=== PATIENT | male | born 1950 | race Caucasian/White ===

== ENCOUNTER 2024-03-16 11:32 | Observation (INO) | payer OTHER, SELFPAY ==
[2024-03-16] VITALS (44 sets, daily range): BP systolic 110–184; BP diastolic 68–110; PULSE 73–136; TEMP 36.8–37.3; O2SAT 84–100; BMI 28.5; BMI 21.3
--- NOTE | 2024-03-16 11:34 | XR_ITS ---
[address] [address] Patient Name: VÍCTOR TEMPLE MRN: [id number] date: 1950 Sex: M Assigned Patient Location: ER Current Patient Location: ED.MAIN Accession/Order Number: [id number] Exam Date: 03/16/2024 11:43 Report Date: 03/16/2024 12:58 At the request of: LEX FALLON Procedure: XR chest 1V EXAM: XR chest 1V HISTORY: shortness of breath COMPARISON: 04/18/2016 TECHNIQUE: AP upright chest x-ray FINDINGS: Lungs appear stable with a few minor scars, no consolidation or edema or new lung lesion. Normal heart size and mediastinal contour for technique. No pleural effusion or pneumothorax. XR/XR chest 1V IMPRESSION: Stable chest x-ray, no acute findings. Electronically authenticated by: THERESE MORALES Date: 03/16/2024 12:58
--- NOTE | 2024-03-16 11:34 | ECG_ITS ---
[facility] Test Date: 2024-03-16 Pat Name: PEDRO TEMPLE Department: Room: - Gender: Male Imposer: : 1950 Requested By: [id number] Order Number: [id number] Reading MD: BELGICA VALDES Measurements Intervals [place] Rate: 102 P: 49 WI: 170 QRS: 55 QRSD: 90 T: 68 QT: 374 QTc: 432 Interpretive Statements 1120 Sinus tachycardia 1470 with occasional supraventricular premature complexes [address] depression [address] & Twave abnormality, can't exclude inferolateral ischemia 9150 abnormal ECG No previous ECG available for comparison Electronically Signed On 03-17-2024 7:17:21 EDT by BELGICA VALDES
[2024-03-16] MEDS: 0.9 % SODIUM CHLORIDE 1,000 ML 1000 ML IV (11:50)
[2024-03-16 11:56] LABS: Hematocrit 46.2 % (42.0-54.0); Hemoglobin 16.5 g/dL (14.0-18.0); Mean Corpuscular HGB Conc 35.7 g/dL (29.9-35.2); Mean Corpuscular Hemoglobin 32.5 pg (25.9-34.0); Mean Corpuscular Volume 90.9 fL (80.0-94.0); Mean Platelet Volume 10.5 fL (9.5-13.5); Platelet Count 434 10^3/uL (150-450); Red Blood Count 5.08 10^6/uL (4.70-6.10); Red Cell Distribution Width 12.9 % (11.0-15.0); White Blood Count 25.5 10^3/uL (4.0-11.0)
[2024-03-16 12:14] LABS: INR 1.01; Prothrombin Time 10.7 sec (9.0-11.6)
[2024-03-16 12:16] LABS: Band Neutrophils Absolute 0.5 10^3/uL (0.0-0.3); Lymphocytes Absolute Manual 0.51 10^3/uL (1.20-3.80); Monocytes Absolute Manual 0.51 10^3/uL (0.30-0.80); Segmented Neut Absolute Manual 23.97 10^3/uL (1.4-6.5)
--- NOTE | 2024-03-16 12:25 | CT_ITS ---
[address] [address] Patient Name: VÍCTOR TEMPLE MRN: [id number] date: 1950 Sex: M Assigned Patient Location: ER Current Patient Location: ER Accession/Order Number: [id number] Exam Date: 03/16/2024 13:47 Report Date: 03/16/2024 14:51 At the request of: LEX FALLON Procedure: CT abdomen pelvis wo con EXAM: CT abdomen pelvis wo con INDICATION: LLQ pain. COMPARISON: CT abdomen pelvis 06/28/2018. TECHNIQUE: Multiple contiguous axial CT images of the abdomen and pelvis were obtained without the use of intravenous contrast. Sagittal and coronal reconstructions were performed. Dose reduction techniques were achieved by using: automated exposure control and/or adjustment of mA and /or kV according to patient size and/or use of iterative reconstruction technique. FINDINGS: Evaluation of visceral organs limited by noncontrast technique. LOWER CHEST: No significant abnormality. ABDOMEN AND PELVIS: LIVER: Unremarkable. BILIARY SYSTEM: Cholecystectomy. Stable mild dilation of the common bile duct, likely sequelae of chronic outlet obstruction. PANCREAS: Unremarkable. SPLEEN: Unremarkable. ADRENAL GLANDS: Normal. URINARY SYSTEM: Similar size of 1.3 cm hyperdense cyst in the left kidney. Simple 2.1 cm cyst in the upper pole the left kidney. Unremarkable right kidney. No hydronephrosis or urolithiasis. Normal bladder. REPRODUCTIVE: Unremarkable. GASTROINTESTINAL TRACT: Normal caliber bowel. No bowel wall thickening or inflammation. Appendectomy. VESSELS: Nonaneurysmal abdominal aorta with mild atherosclerotic calcifications. LYMPH NODES: No adenopathy. PERITONEUM: No ascites or pneumoperitoneum. MUSCULOSKELETAL: SOFT TISSUES: Unremarkable soft tissues. BONES: No acute osseous abnormality or suspicious osseous lesion. MARTE: (series:image) CT/CT abdomen pelvis wo con IMPRESSION: No acute abdominal or pelvic abnormality. Electronically authenticated by: BLANCA SEN Date: 03/16/2024 14:51
[2024-03-16 12:28] LABS: Alanine Aminotransferase 41 U/L (16-63); Albumin Globulin Ratio 0.9; Albumin Level 4.3 g/dL (3.4-5.0); Alkaline Phosphatase 158 U/L (46-116); Anion Gap 19.9; Aspartate Amino Transferase 69 U/L (15-37); BUN Creatinine Ratio 14.9; Bilirubin Total 1.8 mg/dL (0.2-1.0); Calcium 10.1 mg/dL (8.5-10.1); Carbon Dioxide 24.4 mmol/L (21.0-32.0); Chloride 91 mmol/L (98-107); Estimated GFR (African America 27 (>=60); Estimated GFR (Non-African Ame 22 (>=60); Globulin 4.7 g/dL; Glucose 169 mg/dL (74-106); Magnesium 2.2 mg/dL (1.8-2.4); Sodium 133 mmol/L (136-145); Troponin I High Sensitivity 52.6 pg/mL (4.0-76.1)
[2024-03-16 12:34] LABS: Ethanol <3 mg/dL
[2024-03-16 12:36] LABS: Lactate/Lactic Acid 4.6 mmol/L (0.4-2.0); Potassium 2.3 mmol/L (3.5-5.1)
[2024-03-16] MEDS: PIPERACILLIN SODIUM/TAZOBACTAM 3.375 GM in 0.9 % SODIUM CHLORIDE 50 ML IV (13:23)
[2024-03-16] MEDS: SODIUM CHLORIDE 638 ML IV (13:36)
[2024-03-16] MEDS: POTASSIUM CHLORIDE IN WATER 10 MEQ/100 ML PIGGYBACK 100 MEQ IV (13:58)
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
[2024-03-16] MEDS: ONDANSETRON PF 4 MG/2 ML VIAL IV ×2 (14:08→19:59)
[2024-03-16] MEDS: MORPHINE SULFATE 2 MG/ML SYRINGE IV (14:08)
[2024-03-16] MEDS: PROCHLORPERAZINE 10 MG/2 ML VIAL 5 MG IV (15:11)
[2024-03-16 15:35] LABS: Bilirubin Urine MODERATE (NEGATIVE); Blood Urine LARGE (NEGATIVE); Clarity Urine CLEAR (CLEAR); Color Urine YELLOW (YELLOW); Glucose Urine UA NEGATIVE (NEGATIVE); Ketones Urine 15 mg/dL (NEGATIVE); Leukocyte Esterase Urine NEGATIVE (NEGATIVE); Nitrite Urine NEGATIVE (NEGATIVE); Protein Urine 100 mg/dL (NEG/TRACE); Specific Gravity Urine >=1.030 (1.005-1.025); Urobilinogen Urine 0.2 EU/dL (0.2-1.0); pH Urine 5.5 (5.0-9.0)
[2024-03-16 15:38] LABS: Urine Microscopic Indicated YES
[2024-03-16 15:40] LABS: Amphetamine Screen Urine POSITIVE (NEGATIVE); Barbiturates Screen Urine NEGATIVE (NEGATIVE); Benzodiazepines Screen Urine NEGATIVE (NEGATIVE); Buprenorphine Screen Urine NEGATIVE (NEGATIVE); Cannabinoid Screen Urine POSITIVE (NEGATIVE); Cocaine Screen Urine POSITIVE (NEGATIVE); Methadone Screen Urine NEGATIVE (NEGATIVE); Methamphetamines Screen Urine POSITIVE (NEGATIVE); Opiate Screen Urine POSITIVE (NEGATIVE); Oxycodone Screen Urine NEGATIVE (NEGATIVE); Phencyclidine Screen Urine NEGATIVE (NEGATIVE); Tricyclic Antidepressant Urine NEGATIVE (NEGATIVE)
[2024-03-16 15:46] LABS: Bacteria Urine TRACE #/HPF (NONE SEEN); Cast Seen? SEEN #/LPF (NONE SEEN); Crystals Seen? None Seen #/HPF (None Seen); Mucus Urine TRACE (NONE SEEN); Squamous Epithelial Cell Urine FEW #/LPF (NONE/RARE); WBC Urine NONE SEEN #/HPF (NONE SEEN)
[2024-03-16 15:47] LABS: Hyaline Casts Urine RARE; Urine Culture Indicated NO
[2024-03-16] MEDS: POTASSIUM CHLORIDE IN 0.9%NACL 1,000 ML 80 MEQ IV (17:08)
--- NOTE | 2024-03-16 17:34 | PC.NURSE ---
called [facility] and spoke with yeoy woodward ut pharmacist and received verbal med list. pattern chart writer requested a med list to be faxed to [facility] med surg. pharmacist notified pattern chart writer that requests for med list to be faxed had to be during office hours and could take up to three days to be approved, that she could only give a verbal med list.
[2024-03-16] MEDS: CLORDIAZEPOXIDE HCl 25 MG CAPSULE PO (19:59)
[2024-03-16] MEDS: METOPROLOL TARTRATE 50 MG TABLET PO (21:40)
[2024-03-16] MEDS: LORAZEPAM 2 MG/ML VIAL 1 MG IV (21:40)
[2024-03-16] MEDS: MIRTAZAPINE 15 MG TABLET PO (21:40)
[2024-03-16] MEDS: ATORVASTATIN CALCIUM 10 MG TABLET PO (21:40)
[2024-03-16] MEDS: TAMSULOSIN HCL 0.4 MG CAPSULE PO (21:40)
[2024-03-17] VITALS (18 sets, daily range): BP systolic 95–182; BP diastolic 58–86; PULSE 55–102; TEMP 36.6–36.9; O2SAT 94–96
[2024-03-17 05:08] LABS: Basophils Absolute Auto 0.1 10^3/uL (0.0-0.1); Basophils Percent Auto 0.3 % (0.2-2.0); Eosinophils Percent Auto 0.1 % (0.9-7.0); Hematocrit 36.7 % (42.0-54.0); Hemoglobin 12.7 g/dL (14.0-18.0); Immature Granulocytes Pct Auto 0.6 % (0.0-0.5); Lymphocytes Absolute Auto 1.8 10^3/uL (1.2-3.8); Lymphocytes Percent Auto 11.6 % (20.5-60.0); Mean Corpuscular HGB Conc 34.6 g/dL (29.9-35.2); Mean Corpuscular Volume 95.3 fL (80.0-94.0); Mean Platelet Volume 10.3 fL (9.5-13.5); Monocytes Absolute Auto 1.4 10^3/uL (0.3-0.8); Monocytes Percent Auto 8.9 % (1.7-12.0); Neutrophils Absolute Auto 12.5 10^3/uL (1.4-6.5); Neutrophils Percent Auto 78.5 % (43.0-75.0); Platelet Count 254 10^3/uL (150-450); Red Blood Count 3.85 10^6/uL (4.70-6.10); Red Cell Distribution Width 13.3 % (11.0-15.0); White Blood Count 15.9 10^3/uL (4.0-11.0)
[2024-03-17 05:40] LABS: Alanine Aminotransferase 37 U/L (16-63); Albumin Globulin Ratio 0.9; Alkaline Phosphatase 104 U/L (46-116); Aspartate Amino Transferase 55 U/L (15-37); Calcium 8.3 mg/dL (8.5-10.1); Carbon Dioxide 27.8 mmol/L (21.0-32.0); Chloride 103 mmol/L (98-107); Estimated GFR (African America 39 (>=60); Estimated GFR (Non-African Ame 32 (>=60); Globulin 3.5 g/dL; Glucose 90 mg/dL (74-106); Sodium 138 mmol/L (136-145); Total Protein 6.5 g/dL (6.4-8.2)
[2024-03-17] MEDS: POTASSIUM CHLORIDE IN 0.9%NACL 1,000 ML 80 MEQ IV ×2 (05:43→18:31)
[2024-03-17] MEDS: ONDANSETRON PF 4 MG/2 ML VIAL IV ×2 (05:46→09:53)
[2024-03-17] MEDS: LORAZEPAM 2 MG/ML VIAL 1 MG IV ×2 (05:47→09:53)
[2024-03-17 05:50] LABS: Potassium 2.8 mmol/L (3.5-5.1)
[2024-03-17] MEDS: HYOSCYAMINE SULFATE 0.125 MG TAB.SUBL SL ×2 (09:29→20:16)
[2024-03-17] MEDS: PANTOPRAZOLE SODIUM 40 MG VIAL IV ×2 (11:37→22:06)
--- NOTE | 2024-03-17 14:02 | P.HP_ITS ---
HPI H&P: HPI History of Present Illness Chief complaint: INTRACTABLE VOMITING/HYPOKALEMIA Narrative: 74 y/o male to ER with nausea, vomiting, and abdominal pain for several days. Diffuse pain across abdomen. Severe nausea and emesis. Not able to keep down food or drink and to ER. Afebrile. WBC elevated at 25.5. Potassium low and lactate elevated. CT abdomen negative and UA normal. Urine drug screen positive for opiates, amphetamines, cocaine, and THC. Admitted for treatment. Started IV fluids. Feels better overnight and nausea improved. Feels hungry but once attempted to eat developed nausea and emesis. Opioid HPI Opioid Management Most Recent Pain and Opioid Data: Last Pain Scale 0 03/17/24 13:57 Last Pain Assessment 03/17/24 13:57 Last ED Pain Assessment 03/16/24 13:43 Last ORT Total Score 10 03/16/24 16:57 Last ORT Risk Category High Risk 03/16/24 16:57 Last COWS Score 14 03/17/24 13:56 Last COWS Severity Moderate 03/17/24 13:56 Ur Phencyclidine Scrn Negative (NEGATIVE) 03/16/24 14:55 Review of Systems ROS Constitutional Denies: fever, chills or fatigue Cardiovascular Denies: chest pain, palpitations or edema Respiratory Denies: shortness of breath, cough or wheezing Gastrointestinal Reports: abdominal pain, nausea and vomiting; Denies: diarrhea Genitourinary Denies: painful urination [facility] Medical History (Updated 03/17/24 @ 10:13 by Bry Burnette MD) Leukocytosis ?D72.829 - Elevated white blood cell count, unspecified (ICD-10) Surgical History (Updated 03/16/24 @ 16:50 by Amelie Barron LPN) H/O exploratory laparotomy ?Z98.890 - Other specified postprocedural states (ICD-10) History of cholecystectomy ?Z90.49 - Acquired absence of other specified parts of digestive tract (ICD- 10) History of appendectomy ?Z90.49 - Acquired absence of other specified parts of digestive tract (ICD- 10) Social History (Updated 03/16/24 @ 16:52 by Amelie Barron LPN) Within the past year, how often did you have a drink containing alcohol: never Within the past year, how many standard drinks containing alcohol did you have on a typical day: 1 or 2 Within the past year, how often did you have six or more drinks on one occasion: never Total score: 0 Score interpretation: A score less than 4 is consistent with normal alcohol consumption. Smoking status: Former smoker Second hand tobacco smoke exposure: No Non-prescribed substance use: cannabis (any form) Known occupational exposures/hazards: No Highest level of school completed/degree received: high school graduate Are you now , , , , never or living with a partner: In a typical week, how many times do you talk on the telephone with family, friends, or neighbors: never How often do you get together with friends or relatives: never How often do you attend congregational or faith services: never Do you belong to any clubs or organizations such as congregational groups unions, [employer] or athletic groups, or school groups: no Total score: 0 Score interpretation: A score of less than or equal to 1 indicates the most socially isolated. Little interest or pleasure in doing things: not at all Feeling down, depressed, or hopeless: not at all Feel stressed/tense/nervous/anxious/difficulty sleeping: not at all Due to disability, difficulty making decisions: No Do you think of yourself as: straight/heterosexual Gender Identity: male Meds Home Medications and Allergies Home Medications ?Medication ?Instructions ?Recorded ?Confirmed ?Type aspirin 81 mg tablet,delayed 81 mg PO DAILY 03/16/24 03/16/24 History release (Adult Aspirin Regimen) hydrochlorothiazide 25 mg tablet 25 mg PO DAILY 03/16/24 03/16/24 History metoprolol tartrate 50 mg tablet 50 mg PO BID 03/16/24 03/16/24 History (Lopressor) mirtazapine 15 mg tablet 15 mg PO BEDTIME 03/16/24 03/16/24 History omeprazole 20 mg capsule,delayed 20 mg PO DAILY 03/16/24 03/16/24 History release potassium chloride 20 mEq 20 meq PO DAILY 03/16/24 03/16/24 History tablet,extended release (K-Tab) prazosin 1 mg capsule 1 mg PO BEDTIME 03/16/24 03/16/24 History rivaroxaban 15 mg tablet (Xarelto) 15 mg PO DAILY 03/16/24 03/16/24 History sertraline 100 mg tablet 100 mg PO DAILY 03/16/24 03/16/24 History simvastatin 10 mg tablet 10 mg PO QPM 03/16/24 03/16/24 History tamsulosin 0.4 mg capsule 0.4 mg PO BEDTIME 03/16/24 03/16/24 History Allergies Allergy/AdvReac Type Severity Reaction Status Date / Time No Known Drug Allergies Allergy Verified 03/16/24 11:37 Exam Constitutional Vital Signs, click to edit/add: Last Vital Signs Temp 98.2 F 03/17/24 12:31 Pulse 68 03/17/24 13:51 Resp 16 03/17/24 12:31 BP 120/64 03/17/24 12:31 Pulse Ox 96 03/17/24 12:31 O2 Del Method Room Air 03/17/24 12:31 Documenting provider has reviewed patient's vital signs: yes Common normals: no apparent distress, oriented x3 and alert HENMT Common normals: normocephalic Eye Common normals: PERRL and EOMs intact bilaterally Respiratory Common normals: normal respiratory effort and clear to auscultation bilaterally Cardio Common normals: regular rate, regular rhythm, no gallops, no murmurs and no rub GI Common normals: Normal to inspection, nondistended, normoactive bowel sounds present and non-tender Extremity Common normals: normal to inspection Results Labs Labs: Short CBC 03/17/24 Range/Units 04:56 WBC 15.9 H (4.0-11.0) 10^3/uL Hgb 12.7 L (14.0-18.0) g/dL Hct 36.7 L (42.0-54.0) % Plt Count 254 (150-450) 10^3/uL BMP 03/17/24 04:56 Sodium 138 Potassium 2.8 L* Chloride 103 Carbon Dioxide 27.8 BUN 41.0 H Creatinine 2.05 H Glucose 90 Calcium 8.3 L Liver Function 03/17/24 Range/Units 04:56 Total Bilirubin 1.0 (0.2-1.0) mg/dL AST 55 H (15-37) U/L ALT 37 (16-63) U/L Alkaline Phosphatase 104 (46-116) U/L Albumin 3.0 L (3.4-5.0) g/dL Urine 07/06/24 Range/Units 14:55 Urine Color Yellow (YELLOW) Urine Clarity Clear (CLEAR) Urine pH 5.5 (5.0-9.0) Ur Specific [place] >=1.030 A (1.005-1.025) Urine Protein 100 A (NEG/TRACE) mg/dL Urine Glucose (UA) Negative (NEGATIVE) mg/dL Assessment and Plan Assessment and Plan (1) Intractable nausea and vomiting: (2) Abdominal pain: (3) Acute hypokalemia: (4) Lactic acidosis: (5) EMILIE (acute kidney injury): (6) Polysubstance abuse: Plan Presented with nausea and emesis but no sign of infection. WBC and lactate elevated due to emesis and sepsis ruled out. Symptoms likely related to polysubstance abuse. Continue IV fluids and advance diet as tolerated. Replace electrolytes. Start PT. Will reasess in am.
--- NOTE | 2024-03-17 14:14 | PC.NURSE ---
pt given scrambled eggs and toast and thin liquids. patient states discomfort with swallowing. patient coughed ater eggs and spit up the eggs. patient stated he couldnt keep the eggs down.
[2024-03-17] MEDS: POTASSIUM CHLORIDE 40 MEQ in 0.9 % SODIUM CHLORIDE 250 ML 67.5 MEQ IV (14:27)
[2024-03-17] MEDS: RIVAROXABAN 10 MG TABLET 15 MG PO (16:35)
--- NOTE | 2024-03-17 16:56 | PC.NURSE ---
RN and [employer] at patient bedside. RN crushed pill and put it in some applesauce. Patient asked if he could take a sip of water first. Patient took a sip of water and immediately began to cough and choke. RN gave him the crushed pill in small bites of applesauce. Instructed him to tuck his chin when he swallowed. Patient was able to do so without any coughing or choking.
[2024-03-17] MEDS: METOPROLOL TARTRATE 50 MG TABLET PO (21:28)
[2024-03-17] MEDS: MIRTAZAPINE 15 MG TABLET PO (21:28)
[2024-03-17] MEDS: TAMSULOSIN HCL 0.4 MG CAPSULE PO (21:28)
[2024-03-17] MEDS: ATORVASTATIN CALCIUM 10 MG TABLET PO (21:28)
[2024-03-18] VITALS (9 sets, daily range): BP systolic 127–168; BP diastolic 74–78; PULSE 48–75; TEMP 36.4–36.7; O2SAT 91–97
[2024-03-18 05:01] LABS: Basophils Percent Auto 0.5 % (0.2-2.0); Eosinophils Percent Auto 0.4 % (0.9-7.0); Hematocrit 33.1 % (42.0-54.0); Hemoglobin 11.1 g/dL (14.0-18.0); Immature Granulocytes Abs Auto 0.07 10^3/uL (0.00-0.03); Immature Granulocytes Pct Auto 0.8 % (0.0-0.5); Lymphocytes Percent Auto 11.5 % (20.5-60.0); Mean Corpuscular HGB Conc 33.5 g/dL (29.9-35.2); Mean Corpuscular Hemoglobin 32.6 pg (25.9-34.0); Mean Corpuscular Volume 97.4 fL (80.0-94.0); Mean Platelet Volume 10.7 fL (9.5-13.5); Monocytes Absolute Auto 0.6 10^3/uL (0.3-0.8); Monocytes Percent Auto 7.5 % (1.7-12.0); Neutrophils Absolute Auto 6.7 10^3/uL (1.4-6.5); Neutrophils Percent Auto 79.3 % (43.0-75.0); Platelet Count 198 10^3/uL (150-450); Red Cell Distribution Width 13.5 % (11.0-15.0); White Blood Count 8.5 10^3/uL (4.0-11.0)
[2024-03-18 05:14] LABS: Magnesium 2.1 mg/dL (1.8-2.4)
[2024-03-18 05:17] LABS: Alanine Aminotransferase 38 U/L (16-63); Albumin Globulin Ratio 0.9; Albumin Level 2.8 g/dL (3.4-5.0); Alkaline Phosphatase 93 U/L (46-116); Anion Gap 13.3; Aspartate Amino Transferase 39 U/L (15-37); BUN Creatinine Ratio 19.2; Bilirubin Total 0.6 mg/dL (0.2-1.0); Calcium 8.1 mg/dL (8.5-10.1); Carbon Dioxide 25.3 mmol/L (21.0-32.0); Chloride 110 mmol/L (98-107); Estimated GFR (African America 49 (>=60); Estimated GFR (Non-African Ame 40 (>=60); Globulin 3.1 g/dL; Glucose 95 mg/dL (74-106); Potassium 3.6 mmol/L (3.5-5.1); Sodium 145 mmol/L (136-145); Total Protein 5.9 g/dL (6.4-8.2)
[2024-03-18] MEDS: LORAZEPAM 2 MG/ML VIAL 1 MG IV (05:17)
[2024-03-18] MEDS: POTASSIUM CHLORIDE IN 0.9%NACL 1,000 ML 80 MEQ IV (06:24)
[2024-03-18] MEDS: FOLIC ACID 1 MG TABLET PO (08:31)
[2024-03-18] MEDS: CLORDIAZEPOXIDE HCl 25 MG CAPSULE PO (08:31)
[2024-03-18] MEDS: ASPIRIN 81 MG TABLET.DR PO (08:31)
[2024-03-18] MEDS: HYDROCHLOROTHIAZIDE 25 MG TABLET PO (08:31)
[2024-03-18] MEDS: THIAMINE MONONITRATE (VIT B1) 100 MG TABLET PO (08:31)
[2024-03-18] MEDS: SERTRALINE HCL 100 MG TABLET PO (08:34)
[2024-03-18] MEDS: ONDANSETRON PF 4 MG/2 ML VIAL IV (08:35)
[2024-03-18] MEDS: POTASSIUM CHLORIDE 10 MEQ ER TABLET 20 MEQ PO (08:35)
[2024-03-18] MEDS: METOPROLOL TARTRATE 50 MG TABLET PO (08:40)
[2024-03-18] MEDS: KETOROLAC TROMETHAMINE 30 MG/ML VIAL IVP (11:21)
[2024-03-18] MEDS: PANTOPRAZOLE SODIUM 40 MG VIAL IV (11:23)
--- NOTE | 2024-03-18 12:27 | CM.NOTE ---
Rounds made with Dr. Burnette. Discussed labs & plan of care & to get beside swallow eval with Jose. Jose verbalized understanding. Dr. Burnette discussed living situation and having some water in home. Jose said he is interested in assisted living at the [facility]. Social Service were consulted to discussed living situation. Plan is for possible discharge later today.
[2024-03-18] MEDS: ACETAMINOPHEN 500 MG TABLET 1000 MG PO (12:41)
--- NOTE | 2024-03-18 12:58 | SWNOTE1 ---
HANNAH met with pt to discuss dc needs. Pt lives in an apartment and has for about 8 years. He spoke about water issues, but did not go in to great detail. SW asked if he spoke to his landlord about it? He said he is just trying to move out of there. He has a dog at home. SW brought in the number for the AL home in [facility]. HANNAH called with pt and spoke to Shawanda who is in charge of the DOM (independent living). Pt's first question was if he could bring his dog? Unfortunaly there is not pets allowed. At that point pt did not want [facility]. HANNAH provided copy of the application to [facility] with pt to keep. SW offered to print off area housing, low income, and apartments for pt. He is appreciative of the help and would like that. HANNAH asked what pt was going to do about the water in the apartment? He voiced he is going to go get his dog and go to the hotel he has stayed at before and then try to find another place. At this time does not voice any other concerns. HANNAH updated nursing. HANNAH printed off apartment and housing information. SW took to the patient. Pt then voiced frustration that he was getting kicked out and that he did not know he was being discharged today. HANNAH tried assuring pt that we are waiting on speech to come over and do an evaluation with pt to make sure he is swalling/eating well. Pt voiced he has only ate 2 melons. Pt voiced he does not want to wait, he wants to sign out AMA. He voiced he wants to talk with a patient advocate. HANNAH let pt know that SW will get the Director of the floor and nursing. SW expressed to pt not pull out his IV. Pt stated he has before. SW again expressed to pt that SW is getting someone and to not pull IV out. At this time nursing and pt's landlord came in. Pt sitting up in bed getting agitated and voiced it all head games and that he wanted to be discharged and sign out AMA. Nursing attempting to speak with pt and pt's landlord attempting to calm pt down. HANNAH let Christen the director of MED/SURGE know. She will also go talk with pt. HANNAH updated doctor as well.
--- NOTE | 2024-03-18 13:45 | SWNOTE1 ---
Pt having agitation and at this time SW did not address the positive drug screen.
--- NOTE | 2024-03-18 19:16 | PM.DS1 ---
DS: Providers Provider Date of admission: 03/16/24 16:27 Primary care physician: Non-Staff Physician, Consults: 03/17/24 13:56 Clinical Bedside Swallow Eval and Treat Routine Reason for consultation: dysphagia Has provider been notified: No DS: Diagnosis Discharge Diagnosis (1) Intractable nausea and vomiting: (2) Abdominal pain: (3) Acute hypokalemia: (4) Lactic acidosis: (5) Dysphagia: (6) EMILIE (acute kidney injury): (7) Polysubstance abuse: DS: Summary Hospital Course Hospital Course: Reason for admission: See H&P for details. 74 y/o male to ER with nausea, vomiting, and abdominal pain for several days. Diffuse pain across abdomen. Severe nausea and emesis. Not able to keep down food or drink and to ER. Afebrile. WBC elevated at 25.5. Potassium low and lactate elevated. CT abdomen negative and UA normal. Urine drug screen positive for opiates, amphetamines, cocaine, and THC. Admitted for treatment. Hospital course: Started IV fluids. [place] better overnight and nausea improved. Attempted to eat developed nausea and emesis. C/o problems swallowing and nursing noticed coughing with eating. Continued IV fluids. Symptoms improved and mild pain. No nausea. Tolerating solids. Speech performed bedside swallow and recommended mechanical soft diet with thin liquids. Discharged home in stable condition. Resume home medication without change. Follow up with PCP in 1 week. Time Spent with Patient Time attestation: Total time spent providing and/or coordinating discharge services: Time spent: greater than 30 minutes Exam Constitutional Vital Signs, click to edit/add: Last Vital Signs Temp 98.0 F 03/18/24 08:00 Pulse 59 L 03/18/24 13:52 Resp 16 03/18/24 08:00 BP 168/78 H 03/18/24 08:31 Pulse Ox 97 03/18/24 08:00 O2 Del Method Room Air 03/18/24 08:00 Documenting provider has reviewed patient's vital signs: yes Common normals: no apparent distress, oriented x3 and alert HENMT Common normals: normocephalic Eye Common normals: PERRL and EOMs intact bilaterally Respiratory Common normals: normal respiratory effort and clear to auscultation bilaterally Cardio Common normals: regular rate, regular rhythm, no gallops, no murmurs and no rub GI Common normals: Normal to inspection, nondistended, normoactive bowel sounds present and non-tender Extremity Common normals: no pedal edema DS: Data Data Completed and Pending Labs on day of discharge: Labs from last 24 hours 03/18/24 04:42 WBC 8.5 RBC 3.40 L Hgb 11.1 L Hct 33.1 L MCV 97.4 H MCH 32.6 MCHC 33.5 RDW 13.5 Plt Count 198 MPV 10.7 Neut % (Auto) 79.3 H Lymph % (Auto) 11.5 L [place] % (Auto) 7.5 Eos % (Auto) 0.4 L Baso % (Auto) 0.5 Neut # (Auto) 6.7 H Lymph # (Auto) 1.0 L [place] # (Auto) 0.6 Eos # (Auto) 0.0 Baso # (Auto) 0.0 Abs Immat Gran (auto) 0.07 H Imm/Tot Granulo (auto) 0.8 H Sodium 145 Potassium 3.6 Chloride 110 H Carbon Dioxide 25.3 Anion Gap 13.3 BUN 32.0 H Creatinine 1.67 H Est GFR ( Amer) 49 L Est GFR (Non-Af Amer) 40 L BUN/Creatinine Ratio 19.2 Glucose 95 Calcium 8.1 L Magnesium 2.1 Total Bilirubin 0.6 AST 39 H ALT 38 Alkaline Phosphatase 93 Total Protein 5.9 L Albumin 2.8 L Globulin 3.1 Albumin/Globulin Ratio 0.9 Preliminary micro results at discharge 03/16/24 12:20 - Preliminary Blood NO GROWTH AT 36-48 HOURS. FINAL TO FOLLOW. 03/16/24 12:15 Blood Culture Result 1 - Preliminary Blood NO GROWTH AT 36-48 HOURS. FINAL TO FOLLOW. Discharge Plan Discharge Disposition: Home, Self-Care Condition: Good Discharge Medications: New ondansetron 4 mg tablet,disintegrating 4 mg PO Q6H PRN (Reason: nausea and vomiting) Qty: 20 0RF omeprazole 40 mg capsule,delayed release(DR/EC) 40 mg PO DAILY Qty: 30 0RF Continued aspirin [Adult Aspirin Regimen] 81 mg tablet,delayed release (DR/EC) 81 mg PO DAILY hydrochlorothiazide 25 mg tablet 25 mg PO DAILY metoprolol tartrate [Lopressor] 50 mg tablet 50 mg PO BID mirtazapine 15 mg tablet 15 mg PO BEDTIME tamsulosin 0.4 mg capsule 0.4 mg PO BEDTIME omeprazole 20 mg capsule,delayed release(DR/EC) 20 mg PO DAILY potassium chloride [K-Tab] 20 mEq tablet extended release 20 meq PO DAILY prazosin 1 mg capsule 1 mg PO BEDTIME Xarelto 15 mg tablet 15 mg PO DAILY Rx Instructions: must administer with evening meal simvastatin 10 mg tablet 10 mg PO QPM sertraline 100 mg tablet 100 mg PO DAILY Activity: increase activity as tolerated Diet: other Print Language: Setswana Patient Instructions: Omeprazole (By mouth), Ondansetron (By mouth), Narcotic Safety (ED), Methamphetamine Use Disorder (ED) Forms: Portal Instructions Follow Up Appointments: Patient having [facility] health nurse [facility]24 Discharge Date/Time: 03/18/24 14:45
--- NOTE | 2024-03-19 12:52 | CM.DCFOLLOWU ---
Patient is currently down in our ED.
== END 2024-03-18 14:45 | disposition home or self-care (01) ==
LOC: ER 15:22 → MS 16:35
PROVIDERS: Admitting Provider Family Medicine; Emergency Provider Emergency Medicine; Visit Provider Family Medicine
DX: R11.2 Nausea with vomiting, unspecified (principal); R10.9 Unspecified abdominal pain; E87.6 Hypokalemia; E87.20 Acidosis, unspecified; N17.9 Acute kidney failure, unspecified; F19.10 Other psychoactive substance abuse, uncomplicated; Z87.891 Personal history of nicotine dependence
CPT/HCPCS: 36415; 71045; 74176; 80053; 80307; 80320; 81001; 83605; 83690; 83735; 84484; 85007; 85025; 85027; 85610; 86850; 86900; 86901; 87040; 92610; 93005; 96361; 96365; 96366; 96367; 96368; 96375; 96376; 99285; G0378; J0780; J1885; J2060; J2270; J2405; J2543; J3480

== ENCOUNTER 2024-03-19 11:26 | Emergency (ER) | payer OTHER, SELFPAY ==
[2024-03-19] VITALS (29 sets, daily range): BP systolic 150–205; BP diastolic 100–131; PULSE 61–106; TEMP 36.6; O2SAT 97–99; BMI 22.8
--- NOTE | 2024-03-19 12:14 | ECG_ITS ---
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
[2024-03-19 12:27] LABS: Basophils Absolute Auto 0.2 10^3/uL (0.0-0.1); Basophils Percent Auto 1.3 % (0.2-2.0); Eosinophils Absolute Auto 0.2 10^3/uL (0.0-0.7); Eosinophils Percent Auto 1.8 % (0.9-7.0); Hemoglobin 13.4 g/dL (14.0-18.0); Immature Granulocytes Abs Auto 0.05 10^3/uL (0.00-0.03); Immature Granulocytes Pct Auto 0.4 % (0.0-0.5); Lymphocytes Absolute Auto 1.6 10^3/uL (1.2-3.8); Lymphocytes Percent Auto 14.5 % (20.5-60.0); Mean Corpuscular HGB Conc 34.4 g/dL (29.9-35.2); Mean Corpuscular Hemoglobin 32.7 pg (25.9-34.0); Mean Corpuscular Volume 95.1 fL (80.0-94.0); Mean Platelet Volume 10.7 fL (9.5-13.5); Monocytes Absolute Auto 0.7 10^3/uL (0.3-0.8); Monocytes Percent Auto 6.4 % (1.7-12.0); Neutrophils Absolute Auto 8.5 10^3/uL (1.4-6.5); Neutrophils Percent Auto 75.6 % (43.0-75.0); Platelet Count 286 10^3/uL (150-450); White Blood Count 11.2 10^3/uL (4.0-11.0)
[2024-03-19 12:29] LABS: Prothrombin Time 10.6 sec (9.0-11.6)
--- NOTE | 2024-03-19 12:35 | XR_ITS ---
The [address] [address] Patient Name: VÍCTOR TEMPLE MRN: [id number] date: 1950 Sex: M Assigned Patient Location: ER Current Patient Location: ER Accession/Order Number: [id number] Exam Date: 03/19/2024 12:25 Report Date: 03/19/2024 13:07 At the request of: JAMIL OLIVERA Procedure: XR chest 1V EXAM: CHEST 1 VIEW HISTORY: Chest pain TECHNIQUE: Chest, one view. COMPARISON: 03/16/2024. FINDINGS: Lungs are mildly hyperinflated. No focal consolidation, pleural effusion, or pneumothorax. Pulmonary vasculature is within normal limits. Mild tortuosity of the thoracic aorta, with normal heart size. XR/XR chest 1V IMPRESSION: 1. No acute cardiopulmonary disease. 2. Mildly tortuous aorta with normal heart size. Electronically authenticated by: KATTY GONZALEZ Date: 03/19/2024 13:07
[2024-03-19] MEDS: MORPHINE SULFATE 4 MG/ML VIAL IV ×2 (12:36→14:25)
[2024-03-19] MEDS: 0.9 % SODIUM CHLORIDE 500 ML IV (12:36)
[2024-03-19 12:37] LABS: Anion Gap 16.4; Carbon Dioxide 21.3 mmol/L (21.0-32.0); Chloride 106 mmol/L (98-107); Glucose 96 mg/dL (74-106); Lactate/Lactic Acid 1.1 mmol/L (0.4-2.0); Potassium 3.7 mmol/L (3.5-5.1); Sodium 140 mmol/L (136-145)
[2024-03-19 12:38] LABS: Alanine Aminotransferase 44 U/L (16-63); Albumin Globulin Ratio 0.9; Albumin Level 3.3 g/dL (3.4-5.0); Alkaline Phosphatase 110 U/L (46-116); Aspartate Amino Transferase 30 U/L (15-37); Bilirubin Total 0.6 mg/dL (0.2-1.0); Calcium 8.8 mg/dL (8.5-10.1); Estimated GFR (African America 51 (>=60); Estimated GFR (Non-African Ame 42 (>=60); Globulin 3.7 g/dL; Magnesium 1.9 mg/dL (1.8-2.4); Troponin I High Sensitivity 22.5 pg/mL (4.0-76.1)
[2024-03-19] MEDS: ONDANSETRON PF 4 MG/2 ML VIAL IV (12:39)
--- NOTE | 2024-03-19 12:56 | ED_ITS ---
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 He is reporting intractable nausea vomiting and he has a history of weight loss. He was recently admitted to the hospital for a similar situation and discharged home. He had an elevated white blood cell count on his last admission and a severely low potassium. He was admitted for acute kidney injury hypokalemia and leukocytosis. Patient apparently does have caretakers come to the house 3 times a day to help. He has a history of polysubstance abuse in the past. 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 He request pain and nausea medicine. He is dry heaving here upon arrival. He reports generalized abdominal pain. Related Data Home Medications ?Medication ?Instructions ?Recorded ?Confirmed aspirin 81 mg tablet,delayed 81 mg PO DAILY 03/16/24 03/19/24 release (Adult Aspirin Regimen) hydrochlorothiazide 25 mg tablet 25 mg PO DAILY 03/16/24 03/19/24 metoprolol tartrate 50 mg tablet 50 mg PO BID 03/16/24 03/19/24 (Lopressor) mirtazapine 15 mg tablet 15 mg PO BEDTIME 03/16/24 03/19/24 potassium chloride 20 mEq 20 meq PO DAILY 03/16/24 03/19/24 tablet,extended release (K-Tab) prazosin 1 mg capsule 1 mg PO BEDTIME 03/16/24 03/19/24 rivaroxaban 15 mg tablet (Xarelto) 15 mg PO DAILY 03/16/24 03/19/24 sertraline 100 mg tablet 100 mg PO DAILY 03/16/24 03/19/24 simvastatin 10 mg tablet 10 mg PO QPM 03/16/24 03/19/24 tamsulosin 0.4 mg capsule 0.4 mg PO BEDTIME 03/16/24 03/19/24 Previous Rx's ?Medication ?Instructions ?Recorded omeprazole 40 mg capsule,delayed 40 mg PO DAILY #30 caps 03/18/24 release ondansetron 4 mg disintegrating 4 mg PO Q6H PRN nausea and 03/18/24 tablet vomiting #20 tabs Allergies Allergy/AdvReac Type Severity Reaction Status Date / Time No Known Drug Allergies Allergy Verified 03/16/24 11:37 Opioid HPI Opioid Management Most Recent Opioid Data: Last Pain Scale 8 03/19/24 12:36 Last Pain Assessment 03/18/24 14:00 Last ED Pain Assessment 03/16/24 13:43 Last MAR Pain Assessment 03/19/24 14:25 Last ORT Total Score 10 03/16/24 16:57 Last ORT Risk Category High Risk 03/16/24 16:57 Last COWS Score 12 03/18/24 13:00 Last COWS Severity Mild 03/18/24 13:00 Ur Phencyclidine Scrn Negative (NEGATIVE) 03/16/24 14:55 Review of Systems ROS Status of ROS 10 or more systems reviewed and unremark able except as noted in history and below [facility] History (Updated 03/19/24 @ 14:55 by Lisa Daigle DO) Leukocytosis ?D72.829 - Elevated white blood cell count, unspecified (ICD-10) Surgical History (Updated 03/16/24 @ 16:50 by Amelie Barron LPN) H/O exploratory laparotomy ?Z98.890 - Other specified postprocedural states (ICD-10) History of cholecystectomy ?Z90.49 - Acquired absence of other specified parts of digestive tract (ICD- 10) History of appendectomy ?Z90.49 - Acquired absence of other specified parts of digestive tract (ICD- 10) Social History (Updated 03/16/24 @ 16:52 by Amelie Barron LPN) Within the past year, how often did you have a drink containing alcohol: never Within the past year, how many standard drinks containing alcohol did you have on a typical day: 1 or 2 Within the past year, how often did you have six or more drinks on one occasion: never Total score: 0 Score interpretation: A score less than 4 is consistent with normal alcohol consumption. Smoking status: Former smoker Second hand tobacco smoke exposure: No Non-prescribed substance use: cannabis (any form) Known occupational exposures/hazards: No Highest level of school completed/degree received: high school graduate Are you now , , , , never or living with a partner: In a typical week, how many times do you talk on the telephone with family, friends, or neighbors: never How often do you get together with friends or relatives: never How often do you attend sikhism or adventist services: never Do you belong to any clubs or organizations such as sikhism groups unions, fraternal or athletic groups, or school groups: no Total score: 0 Score interpretation: A score of less than or equal to 1 indicates the most socially isolated. Little interest or pleasure in doing things: not at all Feeling down, depressed, or hopeless: not at all Feel stressed/tense/nervous/anxious/difficulty sleeping: not at all Due to disability, difficulty making decisions: No Do you think of yourself as: straight/heterosexual Gender Identity: male Exam Narrative Exam Narrative: Time Seen: [] Vital Signs: [Per nurse's notes.] General: [Alert, Lethargic, pale Skin: [Warm, dry, no rash.] Head: [Normocephalic, atraumatic.] Neck: [Supple, trachea midline.] Eye: [Pupils are equal, round and reactive to light, extraocular movements are intact, normal conjunctiva.] Ears, nose, mouth and throat: oral mucosa moist. Cardiovascular: [Regular rate and rhythm, no murmur.] Respiratory: [Lungs are clear to auscultation, respirations are non-labored, breath sounds are equal.] Chest wall: [No tenderness, no deformity.] Gastrointestinal: [Soft, Generalized diffuse abdominal pain, non distended, normal bowel sounds.] MSK: 5 out of 5 muscle strength x 4 extremities no calf pain or edema Lymphatics: [No lymphadenopathy.] Psychiatric: [Cooperative, appropriate mood & affect.] Neurological: [Alert and oriented to person, place, time, and situation, no focal neurological deficit observed.] Constitutional Vital Signs, click to edit/add: Last Vital Signs Temp 97.9 F 03/19/24 11:33 Pulse 95 H 03/19/24 15:51 Resp 16 03/19/24 15:51 BP 150/100 H 03/19/24 15:51 Pulse Ox 98 03/19/24 15:51 O2 Del Method Room Air 03/19/24 15:51 Course Vital Signs Vital signs: Vital Signs Temperature 97.9 F 03/19/24 11:33 Pulse Rate 69 03/19/24 11:33 Respiratory Rate 18 03/19/24 11:33 Blood Pressure 170/100 H 03/19/24 11:33 Pulse Oximetry 99 03/19/24 11:33 Oxygen Delivery Method Room Air 03/19/24 11:33 Temperature 97.9 F 03/19/24 11:33 Pulse Rate 95 H 03/19/24 15:51 Respiratory Rate 16 03/19/24 15:51 Blood Pressure 150/100 H 03/19/24 15:51 Pulse Oximetry 98 03/19/24 15:51 Oxygen Delivery Method Room Air 03/19/24 15:51 Medical Decision Making MDM Narrative Medical decision making narrative: Patient's lab work is greatly improved. His white blood cell count has come down, his creatinine has improved. Patient did have a CT scan which was neg ative just a couple of days ago. Patient did continue to request pain medication and did feel better after the pain medication and GI cocktail. He also tolerated p.o. here in ED. I think since his labs have improved greatly and he does have some home care that comes to the house, he is safe for discharge at this time. Please return to emergency room if worsening symptoms. His blood pressure was slightly elevated and he said he took his blood pressure medicine but most likely had vomited it up. I gave him 1 dose of IV blood pressure medicine here in the ED. Patient is comfortable with care plan for home and was able to call for a ride. Differential Diagnosis Differential Diagnosis: Leukocytosis acute kidney injury cancer anemia dehydration electrolyte abno Medical Records Medical records reviewed: Yes I reviewed the patient's medical records Lab Data Lab results reviewed: Yes I reviewed the patient's lab results Labs: Lab Results 03/19/24 03/19/24 Range/Units 12:00 12:30 WBC 11.2 H (4.0-11.0) 10^3/uL RBC 4.10 L (4.70-6.10) 10^6/uL Hgb 13.4 L (14.0-18.0) g/dL Hct 39.0 L (42.0-54.0) % MCV 95.1 H (80.0-94.0) fL MCH 32.7 (25.9-34.0) pg MCHC 34.4 (29.9-35.2) g/dL RDW 13.0 (11.0-15.0) % Plt Count 286 (150-450) 10^3/uL MPV 10.7 (9.5-13.5) fL Neut % (Auto) 75.6 H (43.0-75.0) % Lymph % (Auto) 14.5 L (20.5-60.0) % [place] % (Auto) 6.4 (1.7-12.0) % Eos % (Auto) 1.8 (0.9-7.0) % Baso % (Auto) 1.3 (0.2-2.0) % Neut # (Auto) 8.5 H (1.4-6.5) 10^3/uL Lymph # (Auto) 1.6 (1.2-3.8) 10^3/uL [place] # (Auto) 0.7 (0.3-0.8) 10^3/uL Eos # (Auto) 0.2 (0.0-0.7) 10^3/uL Baso # (Auto) 0.2 H (0.0-0.1) 10^3/uL Abs Immat Gran (auto) 0.05 H (0.00-0.03) 10^3/uL Imm/Tot Granulo (auto) 0.4 (0.0-0.5) % PT 10.6 (9.0-11.6) sec INR 1.00 Sodium 140 (136-145) mmol/L Potassium 3.7 (3.5-5.1) mmol/L Chloride 106 (98-107) mmol/L Carbon Dioxide 21.3 (21.0-32.0) mmol/L Anion Gap 16.4 BUN 26.0 H (7.0-18.0) mg/dL Creatinine 1.62 H (0.70-1.30) mg/dL Est GFR ( Amer) 51 L (>=60) Est GFR (Non-Af Amer) 42 L (>=60) BUN/Creatinine Ratio 16.0 Glucose 96 (74-106) mg/dL Lactate 1.1 (0.4-2.0) mmol/L Calcium 8.8 (8.5-10.1) mg/dL Magnesium 1.9 (1.8-2.4) mg/dL Total Bilirubin 0.6 (0.2-1.0) mg/dL AST 30 (15-37) U/L ALT 44 (16-63) U/L Alkaline Phosphatase 110 (46-116) U/L Troponin I High Sens 22.5 (4.0-76.1) pg/mL Total Protein 7.0 (6.4-8.2) g/dL Albumin 3.3 L (3.4-5.0) g/dL Globulin 3.7 g/dL Albumin/Globulin Ratio 0.9 Urine Color Lt. yellow (YELLOW) Urine Clarity Clear (CLEAR) Urine pH 6.0 (5.0-9.0) Ur Specific [place] 1.020 (1.005-1.025) Urine Protein Negative (NEG/TRACE) mg/dL Urine Glucose (UA) Negative (NEGATIVE) mg/dL Urine Ketones Negative (NEGATIVE) mg/dL Urine Occult Blood Negative (NEGATIVE) Urine Nitrite Negative (NEGATIVE) Urine Bilirubin Negative (NEGATIVE) Urine Urobilinogen 0.2 (0.2-1.0) EU/dL Ur Leukocyte Esterase Negative (NEGATIVE) Imaging Data Chest x-ray: Radiologist's impression: ITS Impressions Chest X-Ray 03/19/24 12:35 IMPRESSION: 1. No acute cardiopulmonary disease. 2. Mildly tortuous aorta with normal heart size. Electronically authenticated by: KATTY GONZALEZ Date: 03/19/2024 13:07 ECG Data Attestation: I personally reviewed and interpreted this ECG as follows: Interpretation: EKG INTERPRETATION Time: []1137 Rate: []59 Rhythm: _ []Sinus bradycardia ST segments: _ []No acute ST elevation or depression T waves: _ [] Ectopy: _ [] P wave/FL interval: _ [] QRS interval: _ [] QT interval: _ [] Comparison: _ [] Comparison EKG date: [] Performed by: [self] Discharge Plan Discharge Stand Alone Forms: Portal Instructions Chief Complaint: Chest Pain Clinical Impression: Chest pain, Vomiting Patient Disposition: Home, Self-Care Time of Disposition Decision: 14:55 Mode of Transportation: Private Vehicle Prescriptions / Home Meds: No Action aspirin [Adult Aspirin Regimen] 81 mg tablet,delayed release (DR/EC) 81 mg PO DAILY hydrochlorothiazide 25 mg tablet 25 mg PO DAILY metoprolol tartrate [Lopressor] 50 mg tablet 50 mg PO BID mirtazapine 15 mg tablet 15 mg PO BEDTIME tamsulosin 0.4 mg capsule 0.4 mg PO BEDTIME potassium chloride [K-Tab] 20 mEq tablet extended release 20 meq PO DAILY prazosin 1 mg capsule 1 mg PO BEDTIME Xarelto 15 mg tablet 15 mg PO DAILY Rx Instructions: must administer with evening meal simvastatin 10 mg tablet 10 mg PO QPM sertraline 100 mg tablet 100 mg PO DAILY ondansetron 4 mg tablet,disintegrating 4 mg PO Q6H PRN (Reason: nausea and vomiting) Qty: 20 0RF omeprazole 40 mg capsule,delayed release(DR/EC) 40 mg PO DAILY Qty: 30 0RF Print Language: Malay Instructions: Chest Pain (ED), Acute Nausea and Vomiting (ED) Referrals: Physician,Non-Staff, MD [Primary Care Provider] - 1 week Discharge Date/Time: 03/19/24 15:54
[2024-03-19 12:57] LABS: Bilirubin Urine NEGATIVE (NEGATIVE); Blood Urine NEGATIVE (NEGATIVE); Clarity Urine CLEAR (CLEAR); Color Urine LT. YELLOW (YELLOW); Glucose Urine UA NEGATIVE (NEGATIVE); Ketones Urine NEGATIVE (NEGATIVE); Leukocyte Esterase Urine NEGATIVE (NEGATIVE); Nitrite Urine NEGATIVE (NEGATIVE); Protein Urine NEGATIVE (NEG/TRACE); Urobilinogen Urine 0.2 EU/dL (0.2-1.0)
[2024-03-19 13:01] LABS: Urine Microscopic Indicated NO
[2024-03-19] MEDS: lidocaine HCL 15 ML, MAG HYDROX/ALUMINUM HYD/SIMETH 30 ML, HYOSCYAMINE SULFATE 0.25 MG PO (15:00)
[2024-03-19] MEDS: HYDRALAZINE HCL 20 MG/ML VIAL 10 MG IVP (15:27)
--- NOTE | 2024-03-19 15:49 | PC.NURSE ---
Pt tolerating small amounts of PO
== END 2024-03-19 15:54 | disposition home or self-care (01) ==
PROVIDERS: Emergency Provider Emergency Medicine
DX: R07.9 Chest pain, unspecified (principal); R10.84 Generalized abdominal pain; R11.2 Nausea with vomiting, unspecified; Z87.891 Personal history of nicotine dependence; F19.11 Other psychoactive substance abuse, in remission
CPT/HCPCS: 36415; 71045; 80053; 81003; 83605; 83735; 84484; 85025; 85610; 87040; 93005; 96374; 96375; 96376; 99285; J0360; J2270; J2405

== ENCOUNTER 2025-04-08 11:38 | Inpatient (IN) | payer OTHER, SELFPAY ==
[2025-04-08] VITALS (22 sets, daily range): BP systolic 132–159; BP diastolic 83–119; PULSE 82–149; TEMP 36.3–37.2; O2SAT 95–100; BMI 22.0; BMI 21.9
--- NOTE | 2025-04-08 11:56 | XR_ITS ---
[place] [id number] Patient Name: VÍCTOR TEMPLE MRN: [id number] date: 1950 Sex: M Assigned Patient Location: ER Current Patient Location: ED.MAIN Accession/Order Number: [id number] Exam Date: 04/08/2025 12:33 Report Date: 04/08/2025 12:34 At the request of: JARED SNAZ MD Procedure: XR chest 1V XR chest 1V 04/08/2025 12:10 PM SIGNS AND SYMPTOMS: ^Weak, tachycardic ^Y PROTOCOL: Frontal radiograph of the chest COMPARISON: 03/19/2024 FINDINGS: The trachea is midline. The heart and mediastinal structures are within normal limits. The lung parenchyma is clear. The bony thorax is intact. Degenerative changes are noted in the shoulders and thoracic spine. XR/XR chest 1V IMPRESSION: No acute cardiopulmonary pathology. Impression dictated by: Crow Pederson M.D. 04/08/2025 12:34 PM Dictation Location: [place] [address] Electronically authenticated by: [id number] Y Date: 04/08/2025 12:34
--- NOTE | 2025-04-08 11:56 | ECG_ITS ---
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 Measurements Intervals [place] Rate: 127 P: 90 SD: 148 QRS: 66 QRSD: 84 T: 270 QT: 310 QTc: 385 Interpretive Statements 1120 Sinus tachycardia [address] depression, possible subendocardial injury 4664 [place] abnormality, possible inferior ischemia 9150 abnormal ECG Compared to ECG 03/19/2024 11:37:22 Possible ischemia now present Electronically Signed On 04-08-2025 20:48:58 EDT by KERI MARTINEZ M.D.
--- NOTE | 2025-04-08 11:58 | ED.GENADUL1 ---
HPI HPI - General Adult General Chief complaint: Nausea/Vomiting/Diarrhea Stated complaint: WEAKNESS, NAUSEA, VOMITING, DIARRHEA Time Seen by Provider: 04/08/25 11:40 Source: patient Mode of arrival: Wheelchair Limitations: no limitations History of Present Illness HPI narrative: 75-year-old male presents for feeling weak and shaky. He has not felt well for multiple days. He had some vomiting for 24 hours last week. He felt dizzy and shaky and he called his social sciences instructor who went to his house and brought him here. No fever or hematemesis. He states he has not drink alcohol since 1993. Related Data Home Medications ?Medication ?Instructions ?Recorded ?Confirmed aspirin 81 mg tablet,delayed 81 mg PO DAILY 03/16/24 04/08/25 release (Adult Aspirin Regimen) hydrochlorothiazide 25 mg tablet 25 mg PO DAILY 03/16/24 04/08/25 metoprolol tartrate 50 mg tablet 50 mg PO BID 03/16/24 04/08/25 (Lopressor) mirtazapine 15 mg tablet 15 mg PO BEDTIME 03/16/24 04/08/25 potassium chloride 20 mEq 20 meq PO DAILY 03/16/24 04/08/25 tablet,extended release (K-Tab) prazosin 1 mg capsule 1 mg PO BEDTIME 03/16/24 04/08/25 rivaroxaban 15 mg tablet (Xarelto) 15 mg PO DAILY 03/16/24 04/08/25 sertraline 100 mg tablet 100 mg PO DAILY 03/16/24 04/08/25 simvastatin 10 mg tablet 10 mg PO QPM 03/16/24 04/08/25 tamsulosin 0.4 mg capsule 0.4 mg PO BEDTIME 03/16/24 04/08/25 Previous Rx's ?Medication ?Instructions ?Recorded omeprazole 40 mg capsule,delayed 40 mg PO DAILY #30 caps 03/18/24 release ondansetron 4 mg disintegrating 4 mg PO Q6H PRN nausea and 03/18/24 tablet vomiting #20 tabs Allergies Allergy/AdvReac Type Severity Reaction Status Date / Time No Known Drug Allergies Allergy Verified 04/08/25 11:48 Opioid HPI Opioid Management Most Recent Opioid Data: Last Pain Scale 8 03/19/24, 12:36 Last ORT Total Score 10 03/16/24, 16:57 Last ORT Risk Category High Risk 03/16/24, 16:57 Last COWS Score 12 03/18/24, 13:00 Last COWS Severity Mild 03/18/24, 13:00 Ur Phencyclidine Scrn, (NEGATIVE) Negative Today, 13:00 Review of Systems ROS Narrative A ten point review of systems is negative except as noted above. [facility] Medical History (Updated 04/08/25 @ 13:56 by Matti Goncalves MD) Dysphagia ?R13.10 - Dysphagia, unspecified (ICD-10) Polysubstance abuse ?F19.10 - Other psychoactive substance abuse, uncomplicated (ICD-10) Leukocytosis ?D72.829 - Elevated white blood cell count, unspecified (ICD-10) Surgical History H/O exploratory laparotomy ?Z98.890 - Other specified postprocedural states (ICD-10) History of cholecystectomy ?Z90.49 - Acquired absence of other specified parts of digestive tract (ICD-10) History of appendectomy ?Z90.49 - Acquired absence of other specified parts of digestive tract (ICD-10) Social History (Updated 03/16/24 @ 16:52 by Amelie Barron LPN) Within the past year, how often did you have a drink containing alcohol: never Within the past year, how many standard drinks containing alcohol did you have on a typical day: 1 or 2 Within the past year, how often did you have six or more drinks on one occasion: never Total score: 0 Score interpretation: A score less than 4 is consistent with normal alcohol consumption. Smoking status: Former smoker Second hand tobacco smoke exposure: No Non-prescribed substance use: cannabis (any form) Known occupational exposures/hazards: No Highest level of school completed/degree received: high school graduate Are you now , , , , never or living with a partner: In a typical week, how many times do you talk on the telephone with family, friends, or neighbors: never How often do you get together with friends or relatives: never How often do you attend congregational or jew services: never Do you belong to any clubs or organizations such as congregational groups unions, fraternal or athletic groups, or school groups: no Total score: 0 Score interpretation: A score of less than or equal to 1 indicates the most socially isolated. Little interest or pleasure in doing things: not at all Feeling down, depressed, or hopeless: not at all Feel stressed/tense/nervous/anxious/difficulty sleeping: not at all Due to disability, difficulty making decisions: No Do you think of yourself as: straight/heterosexual Gender Identity: male Exam Narrative Exam Narrative: Nurses note and vital signs reviewed and patient is not hypoxic. General: The patient appears tremorous and is in no apparent respiratory distress Skin: Warm, dry, no pallor noted. There is no rash noted. Head: Normocephalic, atraumatic Eye: Normal conjunctiva, no drainage Ears, Nose, Mouth, and Throat: oral mucosa is moderately dry. Nares patent. Cardiovascular: Regular Rate and Rhythm, tachycardia Respiratory: Patient is in no distress, no accessory muscle use, lungs are clear to auscultation, no wheezing, rales or rhonchi Back: non-tender GI: Soft and nondistended, no tenderness Musculoskeletal: The patient has no evidence of calf tenderness, no pitting edema, symmetrical pulses noted bilaterally Neurological: A&O, normal speech; tremorous Psychiatric: Cooperative Constitutional Vital Signs, click to edit/add: Last Vital Signs Temp 97.9 F 04/08/25 11:45 Pulse 99 H 04/08/25 13:50 Resp 17 04/08/25 13:50 BP 151/115 H 04/08/25 13:00 Pulse Ox 97 04/08/25 13:50 Course Vital Signs Vital signs: Vital Signs Temperature 97.9 F 04/08/25 11:45 Pulse Rate 127 H 04/08/25 11:45 Respiratory Rate 24 H 04/08/25 11:45 Blood Pressure 142/119 H 04/08/25 11:45 Pulse Oximetry 98 04/08/25 11:45 Temperature 97.9 F 04/08/25 11:45 Pulse Rate 99 H 04/08/25 13:50 Respiratory Rate 17 04/08/25 13:50 Blood Pressure 151/115 H 04/08/25 13:00 Pulse Oximetry 97 04/08/25 13:50 Medical Decision Making MDM Narrative Medical decision making narrative: The patient is found to have acute kidney injury. He tested positive for methamphetamine and amphetamine and cannabinoids. He was given IV fluids and oral potassium for hypokalemia. He is being admitted. He had not taken his blood pressure medicine for several days and was given his p.o. metoprolol. Treatment diagnosis and disposition were discussed with the patient. Differential Diagnosis Differential Diagnosis: Dehydration, acute kidney injury, substance abuse Medical Records Medical records reviewed: Yes I reviewed the patient's medical records Lab Data Lab results reviewed: Yes I reviewed the patient's lab results Labs: Lab Results 04/08/25 04/08/25 Range/Units 11:55 13:00 WBC 16.8 H (4.0-11.0) 10^3/uL RBC 4.74 (4.70-6.10) 10^6/uL Hgb 15.9 (14.0-18.0) g/dL Hct 43.5 (42.0-54.0) % MCV 91.8 (80.0-94.0) fL MCH 33.5 (25.9-34.0) pg MCHC 36.6 H (29.9-35.2) g/dL RDW 13.2 (11.0-15.0) % Plt Count 468 H (150-450) 10^3/uL MPV 10.3 (9.5-13.5) fL Neut % (Auto) 76.3 H (43.0-75.0) % Lymph % (Auto) 12.5 L (20.5-60.0) % Bond % (Auto) 9.9 (1.7-12.0) % Eos % (Auto) 0.0 L (0.9-7.0) % Baso % (Auto) 0.5 (0.2-2.0) % Neut # (Auto) 12.8 H (1.4-6.5) 10^3/uL Lymph # (Auto) 2.1 (1.2-3.8) 10^3/uL Bond # (Auto) 1.7 H (0.3-0.8) 10^3/uL Eos # (Auto) 0.0 (0.0-0.7) 10^3/uL Baso # (Auto) 0.1 (0.0-0.1) 10^3/uL Abs Immat Gran (auto) 0.13 H (0.00-0.03) 10^3/uL Imm/Tot Granulo (auto) 0.8 H (0.0-0.5) % Sodium 139 (136-145) mmol/L Potassium 2.7 L* (3.5-5.1) mmol/L Chloride 96 L (98-107) mmol/L Carbon Dioxide 22.2 (21.0-32.0) mmol/L Anion Gap 23.5 BUN 51.0 H (7.0-18.0) mg/dL Creatinine 2.38 H (0.70-1.30) mg/dL Est GFR ( Amer) 32 L (>=60 mL/min/1.73m^2) Est GFR (Non-Af Amer) 27 L (>=60 mL/min/1.73m^2) BUN/Creatinine Ratio 21.4 Glucose 113 H (74-106) mg/dL Calcium 10.0 (8.5-10.1) mg/dL Total Bilirubin 1.7 H (0.2-1.0) mg/dL Direct Bilirubin 0.3 H (0.0-0.2) mg/dL AST 72 H (15-37) U/L ALT 66 H (16-63) U/L Alkaline Phosphatase 121 H (46-116) U/L Total Protein 9.0 H (6.4-8.2) g/dL Albumin 4.3 (3.4-5.0) g/dL Globulin 4.7 g/dL Albumin/Globulin Ratio 0.9 Urine Color Yellow (YELLOW) Urine Clarity Clear (CLEAR) Urine pH 6.0 (5.0-9.0) Ur Specific [place] 1.025 (1.005-1.025) Urine Protein 100 A (NEG/TRACE) mg/dL Urine Glucose (UA) Negative (NEGATIVE) mg/dL Urine Ketones 40 A (NEGATIVE) mg/dL Urine Occult Blood Moderate A (NEGATIVE) Urine Nitrite Negative (NEGATIVE) Urine Bilirubin Moderate A (NEGATIVE) Urine Urobilinogen 0.2 (0.2-1.0) EU/dL Ur Leukocyte Esterase Negative (NEGATIVE) Urine RBC 2-5 A (0-2) #/HPF Urine WBC 0-2 A (NONE SEEN) #/HPF Ur Squamous Epith Cells Few A (NONE/RARE) #/LPF Urine Crystals None seen (None Seen) #/HPF Urine Bacteria Trace A (NONE SEEN) #/HPF Urine Casts Seen A (NONE SEEN) #/LPF Hyaline Casts Few Urine Mucus Trace A (NONE SEEN) Ur Culture Indicated? No Urine Opiates Screen Negative (NEGATIVE) Ur Buprenorphine Scrn Negative (NEGATIVE) Ur Oxycodone Screen Negative (NEGATIVE) Urine Methadone Screen Negative (NEGATIVE) Ur Barbiturates Screen Negative (NEGATIVE) U Tricyclic Antidepress Negative (NEGATIVE) Ur Phencyclidine Scrn Negative (NEGATIVE) Ur Amphetamines Screen Positive A (NEGATIVE) U Methamphetamines Scrn Positive A (NEGATIVE) U Benzodiazepines Scrn Negative (NEGATIVE) Urine Cocaine Screen Negative (NEGATIVE) U Cannabinoids Screen Positive A (NEGATIVE) Ethanol Quant <3 mg/dL Imaging Data CT scan - abdomen: Radiologist's impression: ITS Impressions Chest X-Ray 04/08/25 11:56 IMPRESSION: No acute cardiopulmonary pathology. Impression dictated by: Crow Pederson M.D. 04/08/2025 12:34 PM Dictation Location: [facility] Electronically authenticated by: [id number] Y Date: 04/08/2025 12:34 Abdomen/Pelvis CT 04/08/25 13:10 IMPRESSION: No bowel obstruction or obstructive uropathy. No acute intra-abdominal pathology. Additional chronic appearing findings are noted as above. Impression dictated by: Crow Pederson M.D. 04/08/2025 1:21 PM Dictation Location: [facility] Electronically authenticated by: [id number] Y Date: 04/08/2025 13:21 ECG Data Attestation: I personally reviewed and interpreted this ECG as follows: (EKG on my interpretation shows sinus tachycardia with a rate of 127) Discharge Plan Discharge Chief Complaint: Nausea/Vomiting/Diarrhea Clinical Impression: Acute kidney injury, Polysubstance abuse, Hypokalemia Patient Disposition: Admitted as Observation Time of Disposition Decision: 13:57 Condition: Fair
[2025-04-08] MEDS: 0.9 % SODIUM CHLORIDE 1,000 ML 1000 ML IV (12:03)
[2025-04-08 12:06] LABS: Hematocrit 43.5 % (42.0-54.0); Hemoglobin 15.9 g/dL (14.0-18.0); Immature Granulocytes Abs Auto 0.13 10^3/uL (0.00-0.03); Immature Granulocytes Pct Auto 0.8 % (0.0-0.5); Lymphocytes Absolute Auto 2.1 10^3/uL (1.2-3.8); Mean Corpuscular HGB Conc 36.6 g/dL (29.9-35.2); Mean Corpuscular Hemoglobin 33.5 pg (25.9-34.0); Mean Corpuscular Volume 91.8 fL (80.0-94.0); Platelet Count 468 10^3/uL (150-450); Red Blood Count 4.74 10^6/uL (4.70-6.10); White Blood Count 16.8 10^3/uL (4.0-11.0)
[2025-04-08 12:22] LABS: Anion Gap 23.5; Blood Urea Nitrogen 51.0 mg/dL (7.0-18.0); Calcium 10.0 mg/dL (8.5-10.1); Carbon Dioxide 22.2 mmol/L (21.0-32.0); Chloride 96 mmol/L (98-107); Estimated GFR (African America 32 (>=60 mL/min/1.73m^2); Estimated GFR (Non-African Ame 27 (>=60 mL/min/1.73m^2); Glucose 113 mg/dL (74-106); Sodium 139 mmol/L (136-145)
[2025-04-08 12:23] LABS: Alanine Aminotransferase 66 U/L (16-63); Albumin Globulin Ratio 0.9; Albumin Level 4.3 g/dL (3.4-5.0); Alkaline Phosphatase 121 U/L (46-116); Aspartate Amino Transferase 72 U/L (15-37); Globulin 4.7 g/dL; Total Protein 9.0 g/dL (6.4-8.2)
[2025-04-08 12:27] LABS: Potassium 2.7 mmol/L (3.5-5.1)
--- NOTE | 2025-04-08 13:10 | CT_ITS ---
The [address] [address] Patient Name: VÍCTOR TEMPLE MRN: [id number] date: 1950 Sex: M Assigned Patient Location: ER Current Patient Location: ER Accession/Order Number: [id number] Exam Date: 04/08/2025 13:15 Report Date: 04/08/2025 13:21 At the request of: JARED SANZ MD Procedure: CT abdomen pelvis wo con CT abdomen pelvis wo con 04/08/2025 1:10 PM SIGNS AND SYMPTOMS: Lower abdominal pain with vomiting and diarrhea TECHNIQUE: Multidetector ct axial images of the abdomen and pelvis were obtained without IV contrast. Multiplanar reformats were performed and reviewed to further define anatomy and possible pathology. CT was performed with one or more of the following dose reduction techniques: Automated exposure control, adjustment of the mA and/or kV according to patient size, or use of iterative reconstruction technique. COMPARISON: 03/16/2024 FINDINGS: Lower Chest: Within normal limits. ABDOMEN: Liver: Within normal limits. Bile Ducts: Normal caliber. Gallbladder: Previously removed Pancreas: Within normal limits. Spleen: Within normal limits. Adrenals: Within normal limits. Kidneys: Simple and complex partially calcified cysts are noted in the left renal cortex shows no significant interval change. Pelvis: Reproductive Organs: No pelvic masses. Ureters: Within normal limits. Bladder: Within normal limits. Bowel: Normal caliber. The appendix has been previously removed. Mesenteric Lymph Nodes: No enlarged mesenteric lymph nodes. Peritoneum: No ascites or free air, no fluid collection. Vessels: Atherosclerotic changes are noted in the abdominal aorta and its branches. Retroperitoneum: Within normal limits. Abdominal Wall: Within normal limits. Bones: Degenerative changes are noted in the lumbar spine, hips, and sacroiliac joints. CT/CT abdomen pelvis wo con IMPRESSION: No bowel obstruction or obstructive uropathy. No acute intra-abdominal pathology. Additional chronic appearing findings are noted as above. Impression dictated by: Crow Pederson M.D. 04/08/2025 1:21 PM Dictation Location: [place] [address] Electronically authenticated by: [id number] Y Date: 04/08/2025 13:21
[2025-04-08 13:20] LABS: Glucose Urine UA NEGATIVE (NEGATIVE)
[2025-04-08 13:36] LABS: Crystals Seen? None Seen #/HPF (None Seen)
[2025-04-08 13:37] LABS: Cast Seen? SEEN #/LPF (NONE SEEN); Urine Culture Indicated NO
[2025-04-08 13:41] LABS: Cannabinoid Screen Urine POSITIVE (NEGATIVE); Methamphetamines Screen Urine POSITIVE (NEGATIVE); Tricyclic Antidepressant Urine NEGATIVE (NEGATIVE)
[2025-04-08] MEDS: 0.9 % SODIUM CHLORIDE 1,000 ML 200 ML IV ×2 (14:06→21:13)
[2025-04-08] MEDS: POTASSIUM BICARBONATE/CIT 25 MEQ TABLET EFF 50 MEQ PO (14:06)
[2025-04-08] MEDS: METOPROLOL SUCCINATE 50 MG TAB.ER.24H PO (14:06)
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
[2025-04-08 15:40] LABS: Magnesium 2.1 mg/dL (1.8-2.4)
[2025-04-08] MEDS: POTASSIUM CHLORIDE 40 MEQ in 0.9 % SODIUM CHLORIDE 250 ML 67.5 MEQ IV (17:09)
[2025-04-08] MEDS: RIVAROXABAN 10 MG TABLET 15 MG PO (17:09)
[2025-04-08] MEDS: ATORVASTATIN CALCIUM 10 MG TABLET PO (21:08)
[2025-04-08] MEDS: METOPROLOL TARTRATE 50 MG TABLET PO (21:08)
[2025-04-08] MEDS: TAMSULOSIN HCL 0.4 MG CAPSULE PO (21:08)
[2025-04-08] MEDS: DIPHENOXYLATE HCL 2.5 MG/ATROPINE 0.025 MG TABLET 1 TAB PO (21:12)
[2025-04-08] MEDS: METOCLOPRAMIDE HCL 10 MG/2 ML VIAL 5 MG IVP (23:22)
[2025-04-09] VITALS (7 sets, daily range): BP systolic 117–139; BP diastolic 68–83; PULSE 56–76; TEMP 36.3–36.7; O2SAT 94–97
[2025-04-09 05:42] LABS: Hematocrit 31.8 % (42.0-54.0); Hemoglobin 11.3 g/dL (14.0-18.0); Immature Granulocytes Abs Auto 0.05 10^3/uL (0.00-0.03); Immature Granulocytes Pct Auto 0.5 % (0.0-0.5); Lymphocytes Absolute Auto 1.8 10^3/uL (1.2-3.8); Mean Corpuscular HGB Conc 35.5 g/dL (29.9-35.2); Mean Corpuscular Hemoglobin 33.1 pg (25.9-34.0); Mean Corpuscular Volume 93.3 fL (80.0-94.0); Platelet Count 238 10^3/uL (150-450); Red Blood Count 3.41 10^6/uL (4.70-6.10); White Blood Count 9.2 10^3/uL (4.0-11.0)
[2025-04-09] MEDS: DIPHENOXYLATE HCL 2.5 MG/ATROPINE 0.025 MG TABLET 1 TAB PO ×2 (05:46→20:36)
[2025-04-09] MEDS: PANTOPRAZOLE SODIUM 40 MG TABLET.DR 20 MG PO (05:46)
[2025-04-09 06:03] LABS: Alanine Aminotransferase 54 U/L (16-63); Albumin Globulin Ratio 0.9; Albumin Level 3.0 g/dL (3.4-5.0); Alkaline Phosphatase 82 U/L (46-116); Anion Gap 15.3; Aspartate Amino Transferase 49 U/L (15-37); Blood Urea Nitrogen 46.0 mg/dL (7.0-18.0); Calcium 8.3 mg/dL (8.5-10.1); Carbon Dioxide 23.6 mmol/L (21.0-32.0); Chloride 106 mmol/L (98-107); Estimated GFR (African America 49 (>=60 mL/min/1.73m^2); Estimated GFR (Non-African Ame 41 (>=60 mL/min/1.73m^2); Globulin 3.2 g/dL; Glucose 96 mg/dL (74-106); Magnesium 2.0 mg/dL (1.8-2.4); Sodium 142 mmol/L (136-145); Total Protein 6.2 g/dL (6.4-8.2)
[2025-04-09 06:06] LABS: Potassium 2.9 mmol/L (3.5-5.1)
[2025-04-09] MEDS: POTASSIUM CHLORIDE 40 MEQ in 0.9 % SODIUM CHLORIDE 250 ML 67.5 MEQ IV (08:28)
[2025-04-09] MEDS: ASPIRIN 81 MG TABLET.DR PO (08:39)
[2025-04-09] MEDS: METOPROLOL TARTRATE 50 MG TABLET PO ×2 (08:39→20:37)
[2025-04-09] MEDS: SERTRALINE HCL 100 MG TABLET PO (08:40)
[2025-04-09] MEDS: POTASSIUM CHLORIDE 10 MEQ ER TABLET 20 MEQ PO (08:40)
--- NOTE | 2025-04-09 08:45 | CM.NOTE ---
Rounds made with Dr. Rodriguez, no discharge today. Pt will need to continue IV fluids. Line Installer also consulted. Dr. Rodriguez spoke with pt regarding plan of care.
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
--- NOTE | 2025-04-09 09:54 | SWNOTE1 ---
SW and I met with pt in room to discuss d/c needs. Pt is from home where he lives alone. There are 2 steps to get in home and then one level inside. Pt in independent, does not use DME, still drives. Pt voiced he has a social media developer and nurse from [place] that visit him once a week. PT/OT note recommends pt do home health vs. outpatient therapy. SW discussed this with pt and he refused services. SW did advise pt that if he is d/c and changes his mind, the [place] would be able to set those services up for him. Pt voiced understanding. SW did also discuss pt's drug use as he tested positive for a few things. Pt voiced that was just a fluke, I just smoke a lot of weed. Pt voiced he not need any resources for this. SW voiced understanding. SW did ask pt if he has a support system and pt voiced he has neighbors he gets together with. Pt does not have any needs for d/c at this time. SW to follow if needed.
[2025-04-09 11:26] LABS: C. Difficile PCR NEGATIVE
--- NOTE | 2025-04-09 13:52 | PT.DAILY ---
Physical Therapy Daily Note PT Daily Note/Assess Start: 04/08/25 15:55 Freq: Status: Active Protocol: Document 04/09/25 13:48 ESTRELLITA (Rec: 04/09/25 13:51 ESTRELLITA [id number]) Physical Therapy Daily Note/Assessment Time In/Time Out Time In 13:30 Time Out 13:41 Pain In Pain N/A Pain Out Pain N/A Subjective Subjective Pt supine upon arrival. Agreeable to PT. Therapeutic Exercise Time Therapeutic Exercise 4 Minutes (minutes) Therapeutic Exercise 0 Units Therapeutic Exercise Treatment Therapeutic Exercise Pt instructed to complete LE ROM/strengthening ex while Treatment sitting unsupported EOB. Ex to improve functional mobility prior to gait and transfers. Therapeutic Activity Time Therapeutic Activity 6 Minutes (minutes) Therapeutic Activity 1 Units Therapeutic Activity Treatment Bed Mobility Ability Modified Independent Chair Transfer Modified Independent Ability Therapeutic Activity Supine>sit Ayanna with IV pole. Sits EOB unsupported Comments without LOB. Pt sit>stand Ayanna to RW with set up only. Pt amb 120' with RW, CGA with assist for IV pole. Occ vc needed to stay close to RW while amb. Pt returned to room - needs to use restroom. Left under student nurses care. Total Physical Therapy Time Total Therapy 10 Minutes Total Physical 1 Therapy Units Summary Daily Note Summary Improved transfer and gait ability on this date.
[2025-04-09 14:41] LABS: Anion Gap 13.4; Blood Urea Nitrogen 47.0 mg/dL (7.0-18.0); Calcium 8.1 mg/dL (8.5-10.1); Carbon Dioxide 23.1 mmol/L (21.0-32.0); Chloride 108 mmol/L (98-107); Estimated GFR (African America 46 (>=60 mL/min/1.73m^2); Estimated GFR (Non-African Ame 38 (>=60 mL/min/1.73m^2); Glucose 89 mg/dL (74-106); Potassium 3.5 mmol/L (3.5-5.1); Sodium 141 mmol/L (136-145)
[2025-04-09] MEDS: RIVAROXABAN 10 MG TABLET 15 MG PO (16:27)
[2025-04-09] MEDS: ACETAMINOPHEN 325 MG TABLET 650 MG PO (17:17)
[2025-04-09] MEDS: ATORVASTATIN CALCIUM 10 MG TABLET PO (20:36)
[2025-04-09] MEDS: TAMSULOSIN HCL 0.4 MG CAPSULE PO (20:36)
[2025-04-10] VITALS: BP 111/68; PULSE 53; TEMP 36.5; O2SAT 92
[2025-04-10 04:00] VITALS: BP 102/57; PULSE 52; TEMP 36.5; O2SAT 92
[2025-04-10 05:45] LABS: Hematocrit 30.9 % (42.0-54.0); Hemoglobin 10.7 g/dL (14.0-18.0); Immature Granulocytes Abs Auto 0.04 10^3/uL (0.00-0.03); Immature Granulocytes Pct Auto 0.6 % (0.0-0.5); Lymphocytes Absolute Auto 1.8 10^3/uL (1.2-3.8); Mean Corpuscular HGB Conc 34.6 g/dL (29.9-35.2); Mean Corpuscular Hemoglobin 33.0 pg (25.9-34.0); Mean Corpuscular Volume 95.4 fL (80.0-94.0); Platelet Count 210 10^3/uL (150-450); Red Blood Count 3.24 10^6/uL (4.70-6.10); White Blood Count 7.0 10^3/uL (4.0-11.0)
[2025-04-10] MEDS: PANTOPRAZOLE SODIUM 40 MG TABLET.DR PO (05:57)
[2025-04-10 06:14] LABS: Alanine Aminotransferase 48 U/L (16-63); Albumin Globulin Ratio 0.9; Albumin Level 2.8 g/dL (3.4-5.0); Alkaline Phosphatase 80 U/L (46-116); Anion Gap 13.8; Aspartate Amino Transferase 33 U/L (15-37); Blood Urea Nitrogen 43.0 mg/dL (7.0-18.0); Calcium 8.3 mg/dL (8.5-10.1); Carbon Dioxide 23.5 mmol/L (21.0-32.0); Chloride 109 mmol/L (98-107); Estimated GFR (African America 47 (>=60 mL/min/1.73m^2); Estimated GFR (Non-African Ame 39 (>=60 mL/min/1.73m^2); Globulin 3.1 g/dL; Glucose 97 mg/dL (74-106); Magnesium 1.8 mg/dL (1.8-2.4); Potassium 3.3 mmol/L (3.5-5.1); Sodium 143 mmol/L (136-145); Total Protein 5.9 g/dL (6.4-8.2)
[2025-04-10 07:53] VITALS: BP 118/73; PULSE 50; TEMP 36.4; O2SAT 96
[2025-04-10] MEDS: SERTRALINE HCL 100 MG TABLET PO (08:19)
[2025-04-10] MEDS: ASPIRIN 81 MG TABLET.DR PO (08:19)
--- NOTE | 2025-04-10 09:15 | CM.NOTE ---
Rounds made with Dr. Rodriguez, pt will discharge to home today. Dr. Rodriguez talked with pt about repeat lab work that would need to be done on Monday (CBC and chem 14). Outpatient lab requisition completed and signed by Dr. Rodriguez. [facility] Surg air force pilot will set up f/u appt with [facility] after Monday so lab work will be completed prior to pt's f/u.
[2025-04-10] MEDS: POTASSIUM CHLORIDE 10 MEQ ER TABLET 20 MEQ PO (10:10)
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
[2025-04-10 12:00] VITALS: BP 146/81; PULSE 58; TEMP 36.6; O2SAT 98
--- NOTE | 2025-04-11 14:18 | CM.DCFOLLOWU ---
Person spoke with: patient How are you feeling? well How is your pain? none Did you understand your discharge instructions? yes Do you have any questions about your discharge instructions? no Were you given any prescriptions at discharge? no Were you able to get your prescriptions filled? n/a Do you understand how to take your medications as ordered? n/a Do you have any questions about your follow up appointment and do you plan to keep your follow up appointment? no questions, [facility] Is there anything else that you would like to discuss? no Questions/Comments/Concerns/Other: none
== END 2025-04-10 12:37 | disposition home or self-care (01) | DRG 683 ==
LOC: ER 14:35 → MS 15:31
PROVIDERS: Internal Medicine; Admitting Provider Student in an Organized Health Care Education/Training Program; Emergency Provider Emergency Medicine; Visit Provider Student in an Organized Health Care Education/Training Program
DX: N17.9 Acute kidney failure, unspecified (principal); E44.0 Moderate protein-calorie malnutrition; E87.6 Hypokalemia; F19.10 Other psychoactive substance abuse, uncomplicated; E86.0 Dehydration; Z79.01 Long term (current) use of anticoagulants; Z79.82 Long term (current) use of aspirin; Z90.49 Acquired absence of other specified parts of digestive tract; Z87.891 Personal history of nicotine dependence; I10 Essential (primary) hypertension; N40.0 Benign prostatic hyperplasia without lower urinary tract symptoms; E78.5 Hyperlipidemia, unspecified; K21.9 Gastro-esophageal reflux disease without esophagitis; I48.91 Unspecified atrial fibrillation; R79.89 Other specified abnormal findings of blood chemistry; R54 Age-related physical debility; R19.7 Diarrhea, unspecified; Z68.22 Body mass index [BMI] 22.0-22.9, adult
CPT/HCPCS: 36415; 71045; 74176; 80048; 80053; 80076; 80307; 80320; 81001; 83735; 84100; 85025; 87040; 87045; 87046; 87427; 87493; 93005; 96361; 96374; 97161; 97165; 97530; 97535; 99285; J2405; J2765; J3480